=== PATIENT | male | born 1960 | race Caucasian/White ===

== ENCOUNTER 2018-02-01 10:54 | Emergency (ER) | payer SELFPAY ==
[2018-02-01 10:55] VITALS: BP 160/103; PULSE 93; RESP 14; TEMP 36.6; O2SAT 96; BMI 33.5
--- NOTE | 2018-02-01 11:24 | PC.NURSE ---
Pt denies chest pain, shortness of breath, or dizziness. FAST exam is negative. Pupils equal and reactive. His left hand has dried, flaking skin throughout. Right hand skin is intact.
[2018-02-01] MEDS: predniSONE 20 MG TABLET 40 MG PO (11:56)
[2018-02-01] MEDS: KETOROLAC 60 MG/2 ML VIAL IM (11:56)
[2018-02-01 12:32] VITALS: BP 149/90; PULSE 86; RESP 19; O2SAT 96
--- NOTE | 2018-02-01 18:52 | ED_ITS ---
HPI - Extremity Problem General Chief complaint: Extremity Problem,Nontraumatic Stated complaint: SEVERE SHOULDER PAIN,DOWN ARM Time Seen by Provider: 02/01/18 11:00 Source: patient Mode of arrival: ambulatory Limitations: no limitations History of Present Illness HPI Narrative: 57-year-old daily smoker presents with chief complaint of severe left-sided neck, shoulder and upper extremity pain for the past few days. He states the pain started when he had been sitting at his kitchen table hunched over, looking down at paperwork for 4-5 hours at a time. He states the pain starts in his neck and shoots down his arm and is made worse with any range of motion of his arm. He states it is burning in nature. He denies any weakness, numbness or tingling. He denies any blurred vision or trouble with speech. He denies any overuse or obvious injury. He denies chest pain or shortness of breath. Additionally, the patient complains of a new onset numbness to his right anterior thigh that started sometime today. He denies any pain nor other extremity complaint MD Complaint: extremity pain Onset (ago): day(s) Pain Consistency: constant Location: left Quality: burning and stabbing Radiation: distal Relieving factors: rest Exacerbating factors: range of motion Related Data Previous Rx's Medication Instructions Recorded hydrocodone-acetaminophen [[place]] 1 tab PO TIDP PRN #90 tab 08/03/16 sertraline 50 mg PO QDAY #30 tab 08/03/16 cyclobenzaprine 10 mg PO TID PRN #14 tab 02/01/18 hydrocodone-acetaminophen 1 tab PO Q4-6H PRN #14 tab 02/01/18 ketorolac 10 mg PO Q6H PRN #14 tab 02/01/18 methylprednisolone [Medrol ([place])] See Label Instructions PO PER PKG 02/01/18 DIR #21 each Allergies Allergy/AdvReac Type Severity Reaction Status Date / Time No Known Drug Allergies Allergy Verified 02/01/18 11:54 Review of Systems Review of Systems All systems reviewed & are unremarkable except as noted in HPI and below Constitutional Denies chills, Denies fever(s), Denies lethargy and Denies weakness Eyes Denies change in vision, Denies eye discharge, Denies irritation and Denies loss of vision ENT Ears, Nose, Mouth, and Throat: Denies change in voice, Denies neck pain and Denies sore throat Cardiovascular Denies chest pain, Denies irregular heart rhythm, Denies lightheadedness, Denies palpitations, Denies dyspnea, Denies dyspnea on exertion and Denies orthopnea Respiratory Denies cough, Denies dyspnea, Denies dyspnea on exertion and Denies wheezing Gastrointestinal Gastrointestinal: Denies abdominal pain, Denies change in bowel habits, Denies diarrhea, Denies nausea and Denies vomiting Genitourinary Denies hematuria, Denies flank pain, Denies urinary incontinence and Denies urinary urgency Musculoskeletal Reports limited range of motion, Denies neck pain and Reports radiating pain into limb Integumentary/Breasts Denies pruritus, Denies erythema, Denies rash and Denies wounds Neurologic Denies confusion, Denies loss of vision and Denies weakness Psychiatric Denies anxiety, Denies confusion, Denies depression, Denies homicidal ideation and Denies suicidal ideation Endocrine Denies palpitations Hematologic/Lymphatic Denies easy bruising Allergic/Immunologic Denies wheezing [facility] Social History Smoking Status: Current every day smoker Exam Narrative Exam Narrative: GENERAL: This is a well-nourished, well-developed patient, in mild distress. Splinting his left upper extremity across his chest as HEAD: Atraumatic. Normocephalic. No temporal or scalp tenderness. EYES: Pupils equal round and reactive. Extraocular motions intact. No scleral icterus. No injection or drainage. ENT: Nose without bleeding, purulent drainage or septal hematoma. Throat without erythema, tonsillar hypertrophy or exudate. Uvula midline. Airway patent. NECK: Trachea midline. No JVD or lymphadenopathy. There is some tenderness to palpation of the paraspinal muscles of the left side of his neck. Axial loading may actually improve the burning sensation in his left arm CARDIOVASCULAR: Regular rate and rhythm without murmurs, gallops, or rubs. RESPIRATORY: Clear to auscultation. Breath sounds equal bilaterally. No wheezes , rales, or rhonchi. GASTROINTESTINAL: Abdomen soft, non-tender, nondistended. No hepato-splenomegaly , or palpable masses. No guarding. EXTREMITIES: No clubbing, cyanosis, or edema. Left upper extremity with increasing pain of range of motion at the shoulder. There is no obvious deformity, discoloration, swelling. Cap refill less than 2 sec BACK: Nontender without deformity or crepitance. No flank tenderness. NEURO: AOx3. 5/5 strength bilateral upper and lower extremities with intact reflexes SKIN: No rash or erythema. Initial Vital Signs Initial Vital Signs: Vital Signs Temperature 97.9 F 02/01/18 10:55 Pulse Rate 93 H 02/01/18 10:55 Respiratory Rate 14 02/01/18 10:55 Blood Pressure 160/103 H 02/01/18 10:55 Pulse Oximetry 96 02/01/18 10:55 Procedures Orthopedic Splinting/Casting Injury #1: Side: left Upper Extremity Injury Location: shoulder Upper Extremity Immobilizer: sling/shoulder immobilizer Course Orders Ordered: Discontinued Medications Ketorolac Tromethamine (Toradol) 60 mg IM NOW ONE Stop: 02/01/18 11:36 Last Admin: 02/01/18 11:56 Dose: 60 mg Prednisone (Deltasone) 40 mg PO NOW ONE Stop: 02/01/18 11:36 Last Admin: 02/01/18 11:56 Dose: 40 mg Vital Signs - 8 hr 02/01/18 10:55 02/01/18 12:32 Temperature 97.9 F Pulse Rate 93 H 86 Respiratory Rate 14 19 Blood Pressure 160/103 H 149/90 H Pulse Oximetry 96 96 MDM - Extremity (Nontraumatic) MDM Narrative Medical decision making narrative: Patient has symptoms largely isolated to his left upper extremity and left side of his neck. He has a mechanism and story that would contribute to this type of discomfort. He has no weakness. We discussed the possibility of a more involved workup including head CT and lab work and he refuses at this point time wishing to try anti-inflammatories and a sling 1st. He understands that he may return immediately for any worsening or persistent symptoms. Discharge Plan Departure Patient Disposition: Home Clinical Impression: Cervical radiculopathy Discharge Date/Time: 02/01/18 12:33 Interventions: ED Discharge Assessment Last Done: 02/01/18 12:32 Instructions: DI for Cervical Radiculopathy Activity Restrictions/Additional Instructions: *You have been diagnosed with [ acute cervical radiculopathy ] *What to do: *Take medications as directed *Follow up with your primary care provider in 2-3 days, call for an appointment. Let them know you were seen in the Emergency Department and that we ask that you be seen in follow up *Return to ER if you should have any new, worsening or concerning symptoms , such as [worsening pain, weakness, or other bothersome symptoms ] Prescriptions: New cyclobenzaprine 10 mg tablet 10 mg PO TID PRN (Reason: muscle spasm) Qty: 14 RF: 0 hydrocodone-acetaminophen 5-325 mg tablet 1 tab PO Q4-6H PRN (Reason: pain) Qty: 14 RF: 0 ketorolac 10 mg tablet 10 mg PO Q6H PRN (Reason: pain) Qty: 14 RF: 0 methylprednisolone [Medrol ([place])] 4 mg tablets,dose pack See Label Instructions PO PER PKG DIR Qty: 21 RF: 0 No Action hydrocodone-acetaminophen [[place]] 5 MG/325 MG tablet 1 tab PO TIDP PRNQty: 90 RF: 0 sertraline 50 MG tablet 50 mg PO QDAY Qty: 30 RF: 2 Referrals: Onelia Blackmon MD [Physician] -
== END 2018-02-01 12:33 | disposition home or self-care (01) ==
PROVIDERS: Emergency Provider Emergency Medicine
DX: M54.12 Radiculopathy, cervical region (principal)
CPT/HCPCS: 96372; 99282; 99283; J1885

== ENCOUNTER → 2018-12-15 08:29 | Outpatient (CLI) | payer OTHER, SELFPAY ==
[2018-12-15 09:28] LABS: Add Manual Diff / Slide Review NO; Basophils Absolute Auto 0 /uL (0-100); Basophils Percent Auto 0.8 % (0-2); Eosinophils Absolute Auto 400 /uL (0-450); Eosinophils Percent Auto 6.1 % (2-4); Hematocrit 47.3 % (41-53); Hemoglobin 16.4 g/dL (13.5-17.5); Lymphocytes Absolute Auto 2200 /uL (1100-4500); Mean Corpuscular HGB Conc 34.8 % (30-36); Mean Corpuscular Volume 92.1 fL (80-100); Monocytes Absolute Auto 400 /uL (0-900); Neutrophils Absolute Auto 3100 /uL (1500-7000); Neutrophils Percent Auto 51.1 % (50-75); Platelet Count 164 X10^3/uL (150-400); Red Blood Cell Count 5.13 X10^6/uL (4.5-5.9); Red Cell Distribution Width 12.2 % (11.6-14.8)
[2018-12-15 10:05] LABS: Alanine Aminotransferase 29 IU/L (21-72); Albumin 4.2 g/dL (3.5-5.0); Albumin Globulin Ratio 1.4 (1.0-2.8); Alkaline Phosphatase 89 U/L (38-126); Aspartate Aminotransferase 25 IU/L (17-59); BUN Creatinine Ratio 26.3 (6-22); Bilirubin Total 0.7 mg/dL (0.2-1.3); Blood Urea Nitrogen 21 mg/dL (9-20); Calcium 9.1 mg/dL (8.4-10.2); Carbon Dioxide 26 mmol/L (22-32); Chloride 102 mmol/L (98-107); Estimated Glomerular Filt Rate > 60.0 mL/min (>60); Glucose 296 mg/dL (70-100); HDL Cholesterol 48 mg/dL (40-60); Sodium 137 mmol/L (137-145); Total Protein 7.2 g/dL (6.3-8.2)
[2018-12-15 10:14] LABS: Cholesterol 325 mg/dL (140-199); HEMOLYSIS 26 (0-50); Triglycerides 690 mg/dL (35-150)
[2018-12-15 10:25] LABS: Thyroid Stimulating Hormone 1.18 uIU/mL (0.47-4.68)
[2018-12-15 10:31] LABS: Prostate Specific Antigen Scrn 0.659 ng/mL (0.1-4.0)
== END ==
PROVIDERS: Visit Provider Hospitalist
DX: R53.83 Other fatigue (principal)
CPT/HCPCS: 36415; 80053; 80061; 84443; 85025; G0103

== ENCOUNTER → 2018-12-31 08:30 | Outpatient (CLI) | payer OTHER, SELFPAY ==
[2018-12-31 09:20] LABS: Hemoglobin A1C% w Est Avg Glu 10.2 % (4.0-6.0)
[2018-12-31 09:55] LABS: Cholesterol 267 mg/dL (140-199); Glucose 218 mg/dL (70-100); HDL Cholesterol 59 mg/dL (40-60); LDL Cholesterol Calculated 148 mg/dL (<100); Triglycerides 301 mg/dL (35-150)
== END ==
PROVIDERS: Visit Provider Nurse Practitioner
DX: E78.5 Hyperlipidemia, unspecified (principal); R73.9 Hyperglycemia, unspecified
CPT/HCPCS: 36415; 80061; 82947; 83036

== ENCOUNTER → 2019-02-02 08:43 | Outpatient (CLI) | payer OTHER, SELFPAY ==
[2019-02-02 09:46] LABS: Hemoglobin A1C% w Est Avg Glu 8.6 % (4.0-6.0)
[2019-02-02 09:52] LABS: Cholesterol 229 mg/dL (140-199); Glucose 196 mg/dL (70-100); HDL Cholesterol 52 mg/dL (40-60); LDL Cholesterol Calculated 130 mg/dL (<100); Triglycerides 237 mg/dL (35-150)
== END ==
PROVIDERS: PCP Nurse Practitioner; Visit Provider Nurse Practitioner
DX: E11.9 Type 2 diabetes mellitus without complications (principal); E78.1 Pure hyperglyceridemia; E78.5 Hyperlipidemia, unspecified
CPT/HCPCS: 36415; 80061; 82947; 83036

== ENCOUNTER → 2020-02-17 06:44 | Outpatient (CLI) | payer OTHER, SELFPAY ==
[2020-02-17 07:54] LABS: Creatinine Urine Random 113.8 mg/dL
[2020-02-17 07:57] LABS: Hemoglobin A1C% w Est Avg Glu 8.7 % (4.0-6.0)
[2020-02-17 07:58] LABS: Microalbumi Creatinin Ratio Ur 16.6 ug/mg CR (<30); Microalbumin Urine Random 1.9 mg/dL (0-1.6)
[2020-02-17 08:04] LABS: Alanine Aminotransferase 33 IU/L (<50); Albumin 4.3 g/dL (3.5-5.0); Albumin Globulin Ratio 1.5 (1.0-2.8); Alkaline Phosphatase 75 U/L (38-126); Aspartate Aminotransferase 27 IU/L (17-59); BUN Creatinine Ratio 22.1 (6-22); Bilirubin Total 0.5 mg/dL (0.2-1.3); Blood Urea Nitrogen 19 mg/dL (9-20); Calcium 9.4 mg/dL (8.4-10.2); Carbon Dioxide 30 mmol/L (22-32); Chloride 102 mmol/L (98-107); Cholesterol 269 mg/dL (140-199); Estimated Glomerular Filt Rate > 60.0 mL/min (>60); Globulin 2.8 g/dL (1.7-4.1); Glucose 207 mg/dL (70-100); HDL Cholesterol 64 mg/dL (40-60); HEMOLYSIS < 15 (0-50); LDL Cholesterol Calculated 129 mg/dL (<100); Sodium 137 mmol/L (137-145); Total Protein 7.1 g/dL (6.3-8.2); Triglycerides 382 mg/dL (35-150)
[2020-02-17 08:28] LABS: TSH w/ Reflex to FT4 1.62 uIU/mL (0.47-4.68)
== END ==
PROVIDERS: Nurse Practitioner; PCP Family Medicine; Referring Provider Family Medicine; Visit Provider Family Medicine
DX: Z13.29 Encounter for screening for other suspected endocrine disorder (principal); E11.69 Type 2 diabetes mellitus with other specified complication; E66.9 Obesity, unspecified; E78.1 Pure hyperglyceridemia; E78.5 Hyperlipidemia, unspecified; I10 Essential (primary) hypertension; Z79.899 Other long term (current) drug therapy
CPT/HCPCS: 36415; 80053; 80061; 82043; 82570; 83036; 84443

== ENCOUNTER → 2020-05-23 08:47 | Outpatient (CLI) | payer OTHER, SELFPAY ==
[2020-05-23 09:52] LABS: Add Manual Diff / Slide Review NO; Basophils Absolute Auto 0 /uL (0-100); Basophils Percent Auto 0.6 % (0-2); Eosinophils Absolute Auto 300 /uL (0-450); Eosinophils Percent Auto 5.1 % (2-4); Hematocrit 42.6 % (41-53); Hemoglobin 14.4 g/dL (13.5-17.5); Lymphocytes Absolute Auto 2000 /uL (1100-4500); Lymphocytes Percent Auto 39.8 % (25-40); Mean Corpuscular HGB Conc 33.8 % (30-36); Mean Corpuscular Hemoglobin 31.3 PG (26-34); Mean Corpuscular Volume 92.7 fL (80-100); Monocytes Absolute Auto 300 /uL (0-900); Monocytes Percent Auto 6.2 % (3-14); Neutrophils Absolute Auto 2400 /uL (1500-7000); Neutrophils Percent Auto 48.3 % (50-75); Platelet Count 159 X10^3/uL (150-400); Red Blood Cell Count 4.59 X10^6/uL (4.5-5.9); Red Cell Distribution Width 12.6 % (11.6-14.8); White Blood Cell Count 5.1 X10^3/uL (4.5-11.0)
[2020-05-23 10:01] LABS: Hemoglobin A1C% w Est Avg Glu 7.7 % (4.0-6.0)
[2020-05-23 10:26] LABS: Alanine Aminotransferase 58 IU/L (<50); Albumin 4.1 g/dL (3.5-5.0); Albumin Globulin Ratio 1.5 (1.0-2.8); Alkaline Phosphatase 66 U/L (38-126); Aspartate Aminotransferase 42 IU/L (17-59); BUN Creatinine Ratio 17.9 (6-22); Bilirubin Total 0.7 mg/dL (0.2-1.3); Blood Urea Nitrogen 15 mg/dL (9-20); Calcium 9.5 mg/dL (8.4-10.2); Carbon Dioxide 26 mmol/L (22-32); Chloride 101 mmol/L (98-107); Cholesterol 244 mg/dL (140-199); Estimated Glomerular Filt Rate > 60.0 mL/min (>60); Globulin 2.7 g/dL (1.7-4.1); Glucose 150 mg/dL (70-100); HDL Cholesterol 71 mg/dL (40-60); HEMOLYSIS < 15 (0-50); LDL Cholesterol Calculated 118 mg/dL (<100); Potassium 4.6 mmol/L (3.4-5.1); Sodium 134 mmol/L (137-145); Total Protein 6.8 g/dL (6.3-8.2); Triglycerides 275 mg/dL (35-150)
[2020-05-23 10:45] LABS: TSH w/ Reflex to FT4 1.14 uIU/mL (0.47-4.68)
[2020-05-23 10:49] LABS: Testosterone 371 ng/dL (71.8-623)
== END ==
PROVIDERS: PCP Family Medicine; Referring Provider Family Medicine; Visit Provider Family Medicine
DX: E11.69 Type 2 diabetes mellitus with other specified complication (principal); E11.9 Type 2 diabetes mellitus without complications; E78.1 Pure hyperglyceridemia; E78.5 Hyperlipidemia, unspecified; I10 Essential (primary) hypertension; R53.82 Chronic fatigue, unspecified; R68.82 Decreased libido
CPT/HCPCS: 36415; 80053; 80061; 83036; 84403; 84443; 85025

== ENCOUNTER 2020-10-29 12:04 | Emergency (ER) | payer OTHER, SELFPAY ==
[2020-10-29 12:25] VITALS: BP 187/97; PULSE 80; RESP 17; TEMP 36.9; O2SAT 99; BMI 33.7
--- NOTE | 2020-10-29 12:29 | DI.RAD.S_ITS ---
PROCEDURE: XR CHEST 2V INDICATIONS: cough TECHNIQUE: 2 views of the chest were acquired. COMPARISON: [facility], CHEST 2 VIEW, 07/19/2011, 10:11. [facility], CHEST 2 VIEW, 01/02/2016, 7:47. FINDINGS: Surgical changes and devices: None. Lungs and pleura: Lungs are clear. No pleural effusions or pneumothorax. Mediastinum: Mediastinal contours are normal. Heart size is normal. Bones and chest wall: No suspicious bony abnormalities. Age-appropriate bony degenerative changes are seen. Soft tissues appear unremarkable. IMPRESSION: Clear lungs, without infiltrates. Dictated by: Maximo Dewitt M.D. on 10/29/2020 at 12:01 Approved by: Maximo Dewitt M.D. on 10/29/2020 at 12:01
[2020-10-29 12:57] LABS: COVID19 -Nasal RAPID Negative (Negative)
[2020-10-29 15:37] VITALS: BP 174/89; PULSE 82; O2SAT 97
[2020-10-29] MEDS: COVID-19 VACC, Ad26(JANSSEN)/PF 0.5 ML IM (16:25)
--- NOTE | 2020-10-29 17:16 | ED_ITS ---
HPI - URI/Sore Throat <MARYAN Bustillo - Last Filed: 10/29/20 17:28> General Chief Complaint: Upper Respiratory Symptoms Stated Complaint: Sore Throat, Blood in Phlegm, Hot Time Seen by Provider: 10/29/20 15:58 Source: patient Mode of arrival: Ambulatory Limitations: no limitations History of Present Illness HPI Narrative: 60-year-old male presents to the ED for 2 days of sore throat and productive cough. He endorses a history of hypertension and sleep apnea. He was concerned about COVID and seeking a Maurizio & Maurizio vaccine. No shortness of breath, fever, chest pain or loss of smell or taste, no nausea or vomiting. He has no known sick contacts. This morning he woke up and had a large coughing fit and coughed up some sputum that was blood tinged. He had a persistent cough throughout the day with some thin white sputum, Related Data Home Medications Medication Instructions Recorded Confirmed multivitamin (Multiple Vitamins) 1 tab PO DAILY 12/11/18 05/06/20 Previous Rx's Medication Instructions Recorded blood sugar diagnostic (Blood #100 ea 03/16/20 Glucose Test) blood-glucose meter #1 ea 03/16/20 lancets 33 gauge (BD Ultra Fine #100 ea 03/16/20 Lancets) glipizide 2.5 mg tablet, extended 2.5 mg PO DAILY #90 tab 05/24/20 release 24 hr metformin 1,000 mg tablet 1,000 mg PO BID #180 tab 05/24/20 cyclobenzaprine 10 mg tablet 10 mg PO BEDTIME PRN #20 tab 05/27/20 hydrocodone 5 mg-acetaminophen 325 1 tab PO TID PRN #30 tab 05/27/20 mg tablet naproxen 500 mg tablet 500 mg PO BID #30 tab 05/27/20 lisinopril 10 mg tablet 10 mg PO DAILY #90 tab 06/20/20 pioglitazone 15 mg tablet (Actos) 15 mg PO DAILY #90 tab 06/20/20 Allergies Allergy/AdvReac Type Severity Reaction Status Date / Time No Known Drug Allergies Allergy Verified 05/06/20 09:15 Review of Systems <MARYAN Bustillo - Last Filed: 10/29/20 17:28> Review of Systems Narrative: General: denies fever, chills Head/Neck: denies headache, neck pain Eyes: denies visual changes, eye pain Cardio: denies chest pain, palpitations Respiratory: denies shortness of breath or difficulty breathing, occasional cough. 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 Shoulder pain (~2017) Sleep apnea (~2014) Substance abuse Trochanteric bursitis of right hip Surgical History History of tonsillectomy Family History Mother Thyroid disease Cancer Social History Smoking Status: Former smoker Tobacco: How many years used: 30 quit status: quit date established alcohol intake: current (1-2 beer per night ) substance use type: marijuana Smoking Status: Former smoker alcohol intake frequency: 3 or more drinks per day Substance Use Type: marijuana Exam <MARYAN Bustillo - Last Filed: 10/29/20 17:28> Narrative Exam Narrative: Independently reviewed vitals signs and nursing notes. General: Awake, alert, nontoxic, no cardiorespiratory distress Head/Neck: Atraumatic, neck full range of motion Eyes: EOMI, conjunctiva normal Nose: nares patent, no rhinorrhea Mouth/Throat: moist mucus membranes, posterior pharynx normal, no oral lesions, no exudate Cardio: Regular rate and rhythm, no peripheral edema Respiratory: Breath sounds clear, respirations unlabored without wheezing, stridor, or rales. No retractions. GI: Abdomen soft, nontender MSK: Moves all extremities, neurovascularly intact Skin: Normal capillary refill, no rash Neuro: Normal speech and cognition, normal gait Initial Vital Signs Initial Vital Signs: Vital Signs Temperature 98.4 F 10/29/20 12:25 Pulse Rate 80 10/29/20 12:25 Respiratory Rate 17 10/29/20 12:25 Blood Pressure 187/97 H 10/29/20 12:25 Pulse Oximetry 99 10/29/20 12:25 <Meli Go DO - Last Filed: 10/30/20 08:54> Initial Vital Signs Initial Vital Signs: Vital Signs Temperature 98.4 F 10/29/20 12:25 Pulse Rate 80 10/29/20 12:25 Respiratory Rate 17 10/29/20 12:25 Blood Pressure 187/97 H 10/29/20 12:25 Pulse Oximetry 99 10/29/20 12:25 Course <MARYAN Bustillo - Last Filed: 10/29/20 17:28> Orders Ordered: Discontinued Medications COVID-19 Vacc Ad26-S Recombinant (JSN) (PF) (Covid-19 Vacc, Ad26([place])/Pf 0.5 Ml) 0.5 ml IM .ONCE ONE Stop: 10/29/20 16:01 Last Admin: 10/29/20 16:25 Dose: 0.5 ml Documented by: LOVE Vital Signs Vital signs: Vital Signs - 8 hr 10/29/20 12:25 10/29/20 15:37 Temperature 98.4 F Pulse Rate 80 82 Respiratory Rate 17 Blood Pressure 187/97 H 174/89 H Pulse Oximetry 99 97 <Meli Go DO - Last Filed: 10/30/20 08:54> Orders Ordered: Discontinued Medications COVID-19 Vacc Ad26-S Recombinant (JSN) (PF) (Covid-19 Vacc, Ad26([place])/Pf 0.5 Ml) 0.5 ml IM .ONCE ONE Stop: 10/29/20 16:01 Last Admin: 10/29/20 16:25 Dose: 0.5 ml Documented by: LOVE Vital Signs Vital signs: Vital Signs - 8 hr 10/29/20 12:25 10/29/20 15:37 Temperature 98.4 F Pulse Rate 80 82 Respiratory Rate 17 Blood Pressure 187/97 H 174/89 H Pulse Oximetry 99 97 MDM - URI/Sore Throat <MARYAN Bustillo - Last Filed: 10/29/20 17:28> Lab Data Labs: Lab Results 10/29/20 Range/Units 12:30 SARS-CoV-2 (PCR) Negative (Negative) Imaging Data Chest x-ray: Radiologist's Impression: PROCEDURE:? XR CHEST 2V ? INDICATIONS:? cough ? TECHNIQUE:? 2 views of the chest were acquired.? ? COMPARISON:? [facility], CHEST 2 VIEW, 07/19/2011, 10:11.? [facility], CHEST 2 VIEW, 01/02/2016, 7:47. ? FINDINGS:? ? Surgical changes and devices:? None.? ? Lungs and pleura:? Lungs are clear.? No pleural effusions or pneumothorax.? ? Mediastinum:? Mediastinal contours are normal.? Heart size is normal.? ? Bones and chest wall:? No suspicious bony abnormalities.? Age-appropriate bony degenerative changes are seen. ? Soft tissues appear unremarkable.? IMPRESSION:? Clear lungs, without infiltrates. ? ? Dictated by: Maximo Dewitt M.D. on 10/29/2020 at 12:01 ? ? Approved by: Maximo Dewitt M.D. on 10/29/2020 at 12:01 ? MDM Narrative Medical decision making narrative: 60-year-old male presents to the ED for 2 days of sore throat and productive cough. COVID test with negative, chest x-ray was negative for abnormalities. Patient is nontoxic appearing. No evidence of hypoxia, cardiomegaly, pneumonia or respiratory distress. The patient requested and received his Maurizio & Maurizio COVID vaccination. Patient is appropriate and amenable to discharge home. Vital signs are stable on repeat examination is unremarkable. Patient has been informed of results. Patient has been given strict return to ER precautions for any new or worsening symptoms. Patient understands to follow up closely with outpatient providers as instructed. Patient understands plan and agrees to discharge home. All questions and concerns answered at this time. <Meli Go, - Last Filed: 10/30/20 08:54> Lab Data Labs: Lab Results 10/29/20 Range/Units 12:30 SARS-CoV-2 (PCR) Negative (Negative) Discharge Plan Departure Patient Disposition: Home Clinical Impression: Cough, COVID-19 vaccine administered Instructions: About the COVID-19 Vaccine Activity Restrictions/Additional Instructions: *You have been diagnosed with a cough with possible upper respiratory infection/bronchitis, most likely viral in nature. Your COVID test was negative. Your chest x-ray was normal as well. You have received the Maurizio & Maurizio COVID vaccine. *What to do: *Please continue to take your regular medications as directed. [ ] New medication prescriptions sent to your pharmacy: [ ] [ ] New medication written as a paper prescription [x] No new medications given *Please follow up with your primary care provider in 2-3 days, call for an appointment. Let them know you were seen in the Emergency Department and that we ask that you be seen in follow up. We will electronically transmit a record of today's note if your PCP is in our system *If you do not have a primary care provider please contact the [facility] Resource line at [phone]. They will ask some questions about your medical history and help get you set up with a doctor in the community. *Return to Emergency Department if you should have any new, worsening or concerning symptoms, such as [fever greater than 101F, chills, worsening pain, persistent vomiting or other bothersome symptoms] Prescriptions: No Action glipizide 2.5 mg tablet extended release 24hr 2.5 mg PO DAILY Qty: 90 RF: 0 metformin 1,000 mg tablet 1,000 mg PO BID Qty: 180 RF: 0 lisinopril 10 mg tablet 10 mg PO DAILY Qty: 90 RF: 2 pioglitazone [Actos] 15 mg tablet 15 mg PO DAILY Qty: 90 RF: 2 multivitamin [Multiple Vitamins] Tablet 1 tab PO DAILY RF: 0 (DME) lancets [BD Ultra Fine Lancets] 33 gauge misc See Rx Instructions .ROUTE .MEDSUPPLY Qty: 100 RF: 3 (DME) blood-glucose meter Kit See Rx Instructions .ROUTE .MEDSUPPLY Qty: 1 RF: 0 (DME) Blood Glucose Test Strip See Rx Instructions .ROUTE .MEDSUPPLY Qty: 100 RF: 3 naproxen 500 mg tablet 500 mg PO BID Qty: 30 RF: 0 cyclobenzaprine 10 mg tablet 10 mg PO BEDTIME PRN (Reason: muscle spasm) Qty: 20 RF: 0 hydrocodone-acetaminophen 5-325 mg tablet 1 tab PO TID PRN (Reason: pain) Qty: 30 RF: 0 Referrals: Jamarcus Katz, DO [Primary Care Provider] - <Meli Go DO - Last Filed: 10/30/20 08:54> Cosign ED Attending Cosignature Attestation: I was immediately available in the department for consultation. Documentation has been reviewed. I agree with assessment and plan.
== END 2020-10-29 16:38 | disposition home or self-care (01) ==
PROVIDERS: Emergency Medicine; Emergency Provider Nurse Practitioner Critical Care Medicine; PCP Family Medicine
DX: R05 Cough (principal); Z20.822 Contact with and (suspected) exposure to COVID-19; Z23 Encounter for immunization
CPT/HCPCS: 0031A; 71046; 87635; 91303; 99283; C9803

== ENCOUNTER → 2021-03-01 09:57 | Outpatient (CLI) | payer OTHER, SELFPAY ==
[2021-03-01 12:22] LABS: COVID19 -Nasal RAPID POSITIVE (Negative)
== END ==
PROVIDERS: PCP Family Medicine; Visit Provider Nurse Practitioner Family
DX: Z01.812 Encounter for preprocedural laboratory examination (principal); U07.1 COVID-19; Z20.822 Contact with and (suspected) exposure to COVID-19
CPT/HCPCS: 87635; C9803

== ENCOUNTER → 2021-03-07 06:56 | Outpatient (CLI) | payer OTHER, MEDICAID, SELFPAY ==
[2021-03-07 08:08] LABS: Hemoglobin A1C% w Est Avg Glu 9.6 % (4.0-6.0)
[2021-03-07 08:12] LABS: Alanine Aminotransferase 33 IU/L (<50); Albumin 3.8 g/dL (3.5-5.0); Albumin Globulin Ratio 1.2 (1.0-2.8); Alkaline Phosphatase 79 U/L (38-126); Aspartate Aminotransferase 28 IU/L (17-59); BUN Creatinine Ratio 15.7 (6-22); Blood Urea Nitrogen 13 mg/dL (9-20); Calcium 9.5 mg/dL (8.4-10.2); Carbon Dioxide 29 mmol/L (22-32); Chloride 104 mmol/L (98-107); Cholesterol 197 mg/dL (140-199); Estimated Glomerular Filt Rate > 60.0 mL/min (>60); Globulin 3.2 g/dL (1.7-4.1); Glucose 177 mg/dL (80-110); HDL Cholesterol 65 mg/dL (40-60); HEMOLYSIS < 15 (0-50); LDL Cholesterol Calculated 110 mg/dL (<100); Potassium 4.4 mmol/L (3.4-5.1); Sodium 139 mmol/L (137-145); Triglycerides 109 mg/dL (35-150)
[2021-03-07 08:41] LABS: Add Manual Diff / Slide Review NO; Basophils Absolute Auto 100 /uL (0-100); Basophils Percent Auto 2.1 % (0-2); Eosinophils Absolute Auto 200 /uL (0-450); Eosinophils Percent Auto 3.1 % (2-4); Hematocrit 41.5 % (41-53); Hemoglobin 14.3 g/dL (13.5-17.5); Lymphocytes Absolute Auto 1700 /uL (1100-4500); Lymphocytes Percent Auto 28.1 % (25-40); Mean Corpuscular HGB Conc 34.5 % (30-36); Mean Corpuscular Hemoglobin 32.1 PG (26-34); Mean Corpuscular Volume 93.1 fL (80-100); Monocytes Absolute Auto 600 /uL (0-900); Monocytes Percent Auto 9.7 % (3-14); Neutrophils Absolute Auto 3400 /uL (1500-7000); Platelet Count 180 X10^3/uL (150-400); Red Blood Cell Count 4.45 X10^6/uL (4.5-5.9); Red Cell Distribution Width 12.4 % (11.6-14.8)
== END ==
PROVIDERS: PCP Family Medicine; Referring Provider Family Medicine; Visit Provider Family Medicine
DX: E11.9 Type 2 diabetes mellitus without complications (principal); I10 Essential (primary) hypertension
CPT/HCPCS: 36415; 80053; 80061; 83036; 85025

== ENCOUNTER → 2021-05-29 07:30 | Outpatient (CLI) | payer OTHER, MEDICAID, SELFPAY ==
[2021-05-29 09:16] LABS: Alanine Aminotransferase 27 IU/L (<50); Albumin 4.1 g/dL (3.5-5.0); Albumin Globulin Ratio 1.5 (1.0-2.8); Alkaline Phosphatase 53 U/L (38-126); Aspartate Aminotransferase 26 IU/L (17-59); BUN Creatinine Ratio 21.1 (6-22); Bilirubin Total 0.9 mg/dL (0.2-1.3); Blood Urea Nitrogen 20 mg/dL (9-20); Calcium 9.1 mg/dL (8.4-10.2); Carbon Dioxide 28 mmol/L (22-32); Chloride 103 mmol/L (98-107); Estimated Glomerular Filt Rate > 60.0 mL/min (>60); Globulin 2.8 g/dL (1.7-4.1); Glucose 120 mg/dL (80-110); HEMOLYSIS < 15 (0-50); Potassium 4.4 mmol/L (3.4-5.1); Sodium 137 mmol/L (137-145); Total Protein 6.9 g/dL (6.3-8.2)
[2021-05-29 09:17] LABS: Creatinine Urine Random 94.8 mg/dL
[2021-05-29 09:20] LABS: Hemoglobin A1C% w Est Avg Glu 7.3 % (4.0-6.0)
[2021-05-29 09:20] LABS: Microalbumi Creatinin Ratio Ur 9.4 ug/mg CR (<30); Microalbumin Urine Random 0.9 mg/dL (0-1.6)
[2021-05-29 10:32] LABS: COVID19 -Nasal RAPID Negative (Negative)
== END ==
PROVIDERS: Family Medicine Sleep Medicine; PCP Family Medicine; Referring Provider Family Medicine; Visit Provider Family Medicine
DX: Z20.822 Contact with and (suspected) exposure to COVID-19 (principal); E11.9 Type 2 diabetes mellitus without complications; I10 Essential (primary) hypertension
CPT/HCPCS: 36415; 80053; 82043; 82570; 83036; 87635; C9803

== ENCOUNTER → 2021-05-30 08:11 | Outpatient (CLI) | payer OTHER, MEDICAID, SELFPAY ==
--- NOTE | 2021-05-30 09:10 | P.PCN_ITS ---
Cardiac Stress Test Report Referral & Results Date Patient Seen: 05/30/21 Time Patient Seen: 09:00 Requesting provider: Jamarcus Katz Indication: Fatigue, exercise intolerance Rest ECG: NSR Procedure Note: Today, following both written and verbal informed consent, the patient was exercised according to a standard Hoang protocol. The patient exercised for a total of 9 minutes 12 seconds achieving a maximum heart rate of 144. Patient's maximum systolic blood pressure was 200. This was an estimated 10.1 METs. Patient complains of activity limiting right thigh pain. Normal hemodynamic response to exercise. No signs or symptoms of angina. Average exercise capacity (FA I 0% on active scale). Rare PVCs at peak exercise. No other r hythm changes or ST deviations. Normal hemodynamic recovery at rest. Impression: Low probability for ischemia. Decker treadmill score of 9 is correlated with 97% 5 year survival rate cardiac causes of mortality. Patient remained concerned about recent imaging findings of calcification on the abdominal aorta. I recommended follow-up ankle brachial index. Please note: Actual ECG tracings can be found in the PACS system.
== END ==
PROVIDERS: PCP Family Medicine; Referring Provider Family Medicine; Visit Provider Family Medicine
DX: I20.8 Other forms of angina pectoris (principal)
CPT/HCPCS: 93016; 93017; 93018

== ENCOUNTER → 2021-05-31 12:37 | Outpatient (CLI) | payer OTHER, MEDICAID, SELFPAY | PROVIDERS: PCP Family Medicine; Referring Provider Family Medicine; Visit Provider Family Medicine | DX: M43.06 Spondylolysis, lumbar region (principal); Z53.20 Procedure and treatment not carried out because of patient's decision for unspecified reasons ==

== ENCOUNTER → 2021-09-25 07:52 | Outpatient (CLI) | payer OTHER, SELFPAY ==
[2021-09-25 09:34] LABS: Alanine Aminotransferase 33 IU/L (<50); Albumin 4.3 g/dL (3.5-5.0); Albumin Globulin Ratio 1.5 (1.0-2.8); Alkaline Phosphatase 55 U/L (38-126); Aspartate Aminotransferase 31 IU/L (17-59); BUN Creatinine Ratio 21.1 (6-22); Bilirubin Total 0.7 mg/dL (0.2-1.3); Blood Urea Nitrogen 20 mg/dL (9-20); Calcium 8.7 mg/dL (8.4-10.2); Carbon Dioxide 27 mmol/L (22-32); Chloride 104 mmol/L (98-107); Estimated Glomerular Filt Rate > 60 mL/min (>60); Globulin 2.9 g/dL (1.7-4.1); Glucose 99 mg/dL (80-110); HEMOLYSIS < 15 (0-50); Hemoglobin A1C% w Est Avg Glu 6.6 % (4.0-6.0); Potassium 4.4 mmol/L (3.4-5.1); Sodium 137 mmol/L (137-145); Total Protein 7.2 g/dL (6.3-8.2)
[2021-09-25 10:37] LABS: TSH w/ Reflex to FT4 1.06 uIU/mL (0.47-4.68)
== END ==
PROVIDERS: Family Provider Family Medicine; PCP Family Medicine; Referring Provider Family Medicine; Visit Provider Family Medicine
DX: E11.69 Type 2 diabetes mellitus with other specified complication (principal); E78.5 Hyperlipidemia, unspecified; I10 Essential (primary) hypertension; M43.06 Spondylolysis, lumbar region
CPT/HCPCS: 36415; 80053; 83036; 84443

== ENCOUNTER → 2021-10-16 07:31 | Outpatient (CLI) | payer OTHER, SELFPAY ==
--- NOTE | 2021-10-16 07:32 | DI.US.S_ITS ---
PROCEDURE: US ARTERIAL DUPLEX LE BI INDICATIONS: DIABETES/HYPERLIPIDEMIA. HISTORY OF NICOTINE USE. TECHNIQUE: Color and pulse Doppler interrogation was performed of both lower extremity arterial systems, with image documentation. COMPARISON: None. FINDINGS: Right lower extremity: Common femoral artery: 137 cm/sec, with triphasic flow. Deep femoral artery: 133 cm/sec, with triphasic flow. Proximal superficial femoral artery: 121 cm/sec, with triphasic flow. Mid superficial femoral artery: 91 cm/sec, with triphasic flow. Distal superficial femoral artery: 85 cm/sec, with triphasic flow. Popliteal artery: 67 cm/sec, with triphasic flow. Posterior tibial artery: 61 cm/sec, with triphasic flow. Anterior tibial artery/dorsalis pedis: 21 cm/sec, with biphasic flow. Dixon-scale imaging description: Mild atheromatous plaque is present. No focal hemodynamically significant stenosis. Left lower extremity: Common femoral artery: 103 cm/sec, with triphasic flow. Deep femoral artery: 70 cm/sec, with triphasic flow. Proximal superficial femoral artery: 104 cm/sec, with triphasic flow. Mid superficial femoral artery: 87 cm/sec, with triphasic flow. Distal superficial femoral artery: 71 cm/sec, with triphasic flow. Popliteal artery: 64 cm/sec, with triphasic flow. Posterior tibial artery: 66 cm/sec, with triphasic flow. Anterior tibial artery/dorsalis pedis: 26 cm/sec, with biphasic flow. Dixon-scale imaging description: Mild atheromatous plaque is present throughout. No focal hemodynamically significant stenosis. IMPRESSION: No sonographic findings to suggest hemodynamically significant stenosis of the bilateral lower extremity arteries. Dictated by: Alat Mccoy M.D. on 10/16/2021 at 10:22 Approved by: Alta Mccoy M.D. on 10/16/2021 at 10:24
== END ==
PROVIDERS: Family Provider Family Medicine; PCP Family Medicine; Referring Provider Family Medicine; Visit Provider Family Medicine
DX: E11.69 Type 2 diabetes mellitus with other specified complication; E78.5 Hyperlipidemia, unspecified; F17.201 Nicotine dependence, unspecified, in remission; I10 Essential (primary) hypertension
CPT/HCPCS: 93925

== ENCOUNTER → 2022-04-05 10:06 | Outpatient (CLI) | payer OTHER, SELFPAY ==
[2022-04-05 10:30] LABS: Hemoglobin 14.2 g/dL (13.5-17.5); Mean Corpuscular HGB Conc 33.9 % (30-36); Mean Corpuscular Volume 91.5 fL (80-100); Platelet Count 166 X10^3/uL (150-400); Red Blood Cell Count 4.59 X10^6/uL (4.5-5.9); Red Cell Distribution Width 12.8 % (11.6-14.8); White Blood Cell Count 6.7 X10^3/uL (4.5-11.0)
[2022-04-05 10:38] LABS: Hemoglobin A1C% w Est Avg Glu 6.8 % (4.0-6.0)
[2022-04-05 10:46] LABS: BUN Creatinine Ratio 20.2 (6-22); Blood Urea Nitrogen 17 mg/dL (9-20); Calcium 9.4 mg/dL (8.4-10.2); Carbon Dioxide 30 mmol/L (22-32); Chloride 98 mmol/L (98-107); Estimated Glomerular Filt Rate > 60 mL/min (>60); Glucose 116 mg/dL (80-110); HEMOLYSIS < 15 (0-50); Potassium 5.2 mmol/L (3.4-5.1); Sodium 138 mmol/L (137-145)
[2022-04-05 11:15] LABS: TSH w/ Reflex to FT4 1.03 uIU/mL (0.47-4.68)
== END ==
PROVIDERS: Family Provider Family Medicine; PCP Family Medicine; Referring Provider Nurse Practitioner Family; Visit Provider Nurse Practitioner Family
DX: E11.9 Type 2 diabetes mellitus without complications (principal); R42 Dizziness and giddiness
CPT/HCPCS: 36415; 80048; 83036; 84443; 85027

== ENCOUNTER → 2022-04-06 10:40 | Outpatient (CLI) | payer OTHER, SELFPAY ==
[2022-04-06 11:33] LABS: HEMOLYSIS < 15 (0-50); Potassium 4.4 mmol/L (3.4-5.1)
== END ==
PROVIDERS: Family Provider Family Medicine; PCP Family Medicine; Referring Provider Nurse Practitioner Family; Visit Provider Nurse Practitioner Family
DX: E87.5 Hyperkalemia (principal)
CPT/HCPCS: 36415; 84132

== ENCOUNTER → 2022-12-28 06:57 | Outpatient (CLI) | payer OTHER, MEDICAID, SELFPAY ==
[2022-12-28 07:49] LABS: Add Manual Diff / Slide Review NO; Basophils Absolute Auto 0 /uL (0-100); Basophils Percent Auto 0.9 % (0-2); Eosinophils Absolute Auto 300 /uL (0-450); Eosinophils Percent Auto 5.5 % (2-4); Lymphocytes Absolute Auto 2000 /uL (1100-4500); Lymphocytes Percent Auto 38.6 % (25-40); Mean Corpuscular HGB Conc 34.2 % (30-36); Mean Corpuscular Hemoglobin 31.7 PG (26-34); Mean Corpuscular Volume 92.7 fL (80-100); Monocytes Absolute Auto 400 /uL (0-900); Monocytes Percent Auto 7.9 % (3-14); Neutrophils Absolute Auto 2400 /uL (1500-7000); Neutrophils Percent Auto 47.1 % (50-75); Platelet Count 168 X10^3/uL (150-400); Red Blood Cell Count 4.42 X10^6/uL (4.5-5.9); Red Cell Distribution Width 13.4 % (11.6-14.8); White Blood Cell Count 5.2 X10^3/uL (4.5-11.0)
[2022-12-28 07:55] LABS: Hemoglobin A1C% w Est Avg Glu 6.6 % (4.0-6.0)
[2022-12-28 08:08] LABS: Alanine Aminotransferase 30 IU/L (<50); Albumin 4.3 g/dL (3.5-5.0); Albumin Globulin Ratio 1.5 (1.0-2.8); Alkaline Phosphatase 55 U/L (38-126); Aspartate Aminotransferase 28 IU/L (17-59); BUN Creatinine Ratio 18.1 (6-22); Bilirubin Total 0.6 mg/dL (0.2-1.3); Blood Urea Nitrogen 15 mg/dL (9-20); Calcium 9.4 mg/dL (8.4-10.2); Carbon Dioxide 26 mmol/L (22-32); Chloride 101 mmol/L (98-107); Cholesterol 229 mg/dL (140-199); Estimated Glomerular Filt Rate > 60 mL/min (>60); Globulin 2.8 g/dL (1.7-4.1); Glucose 132 mg/dL (80-110); HDL Cholesterol 73 mg/dL (40-60); HEMOLYSIS < 15 (0-50); LDL Cholesterol Calculated 124 mg/dL (<100); Potassium 4.8 mmol/L (3.4-5.1); Sodium 134 mmol/L (137-145); Total Protein 7.1 g/dL (6.3-8.2); Triglycerides 161 mg/dL (35-150)
== END ==
PROVIDERS: Family Provider Family Medicine; PCP Family Medicine; Referring Provider Family Medicine; Visit Provider Family Medicine
DX: I10 Essential (primary) hypertension (principal); E11.9 Type 2 diabetes mellitus without complications; E11.69 Type 2 diabetes mellitus with other specified complication; E78.5 Hyperlipidemia, unspecified
CPT/HCPCS: 36415; 80053; 80061; 83036; 85025

== ENCOUNTER → 2023-02-21 11:52 | Outpatient (CLI) | payer OTHER, MEDICAID, SELFPAY ==
[2023-02-21 14:25] LABS: Influenza A - CEPHEID Flu A NEGATIVE (NEGATIVE); Influenza B - CEPHEID Flu B NEGATIVE (NEGATIVE); Respiratory Syncytial Virus Negative (Negative)
[2023-02-21 14:26] LABS: COVID-19 CEPHEID 4-PLEX PCR Negative (Negative)
== END ==
PROVIDERS: Family Provider Family Medicine; PCP Family Medicine; Visit Provider Physician Assistant
DX: R05.3 Chronic cough (principal)
CPT/HCPCS: 0241U

== ENCOUNTER → 2023-02-21 11:57 | Outpatient (CLI) | payer OTHER, MEDICAID, SELFPAY ==
[2023-02-21 12:59] LABS: Add Manual Diff / Slide Review NO; Basophils Absolute Auto 100 /uL (0-100); Eosinophils Absolute Auto 200 /uL (0-450); Eosinophils Percent Auto 2.9 % (2-4); Hematocrit 40.4 % (41-53); Lymphocytes Absolute Auto 1800 /uL (1100-4500); Lymphocytes Percent Auto 35.9 % (25-40); Mean Corpuscular HGB Conc 34.6 % (30-36); Mean Corpuscular Volume 92.6 fL (80-100); Monocytes Absolute Auto 400 /uL (0-900); Neutrophils Absolute Auto 2700 /uL (1500-7000); Neutrophils Percent Auto 53.2 % (50-75); Platelet Count 192 X10^3/uL (150-400); Red Blood Cell Count 4.36 X10^6/uL (4.5-5.9); Red Cell Distribution Width 12.9 % (11.6-14.8); White Blood Cell Count 5.1 X10^3/uL (4.5-11.0)
[2023-02-21 13:35] LABS: Alanine Aminotransferase 35 IU/L (<50); Albumin 4.3 g/dL (3.5-5.0); Albumin Globulin Ratio 1.2 (1.0-2.8); Alkaline Phosphatase 65 U/L (38-126); Aspartate Aminotransferase 27 IU/L (17-59); BUN Creatinine Ratio 20.9 (6-22); Bilirubin Total 0.6 mg/dL (0.2-1.3); Blood Urea Nitrogen 18 mg/dL (9-20); Calcium 9.7 mg/dL (8.4-10.2); Carbon Dioxide 30 mmol/L (22-32); Chloride 99 mmol/L (98-107); Estimated Glomerular Filt Rate > 60 mL/min (>60); Globulin 3.5 g/dL (1.7-4.1); Glucose 101 mg/dL (80-110); HEMOLYSIS < 15 (0-50); Potassium 4.6 mmol/L (3.4-5.1); Sodium 135 mmol/L (137-145); Total Protein 7.8 g/dL (6.3-8.2)
[2023-02-21 13:56] LABS: Prostate Specific Antigen Scrn 0.773 ng/mL (0.1-4.0); TSH w/ Reflex to FT4 1.08 uIU/mL (0.47-4.68)
== END ==
PROVIDERS: Family Provider Family Medicine; PCP Family Medicine; Referring Provider Physician Assistant; Visit Provider Physician Assistant
DX: Z12.5 Encounter for screening for malignant neoplasm of prostate (principal); I10 Essential (primary) hypertension; R05.3 Chronic cough
CPT/HCPCS: 0241U; 36415; 80053; 84443; 85025; G0103

== ENCOUNTER → 2023-07-01 11:40 | Outpatient (CLI) | payer OTHER, SELFPAY ==
--- NOTE | 2023-07-01 11:42 | DI.RAD.S_ITS ---
PROCEDURE: XR HIP W PEL IF DONE RT 2V INDICATIONS: eval R hip pain TECHNIQUE: AP pelvis with lateral view(s) of the bilateral hip(s). COMPARISON: [facility], , [id number] W PEL IF PERFORMED, 08/15/2015, 11:37. [facility], , HIP 2V RIGHT, 07/19/2011, 10:17. FINDINGS: Bones: No fractures or dislocations. Pelvic ring appears intact. No suspicious bony lesions. Mild nonuniform joint space narrowing with osteophytic lipping of the acetabuli. Subchondral cystic change present within the acetabuli. Soft tissues: The visualized bowel gas pattern is normal. No suspicious soft tissue calcifications. IMPRESSION: Moderate to severe bilateral hip osteoarthritis. Kellgren-Sp Grade 3. Dictated by: Dereje Eisenberg M.D. on 07/01/2023 at 14:17 Approved by: Dereje Eisenberg M.D. on 07/01/2023 at 14:17
== END ==
PROVIDERS: Family Provider Family Medicine; PCP Family Medicine; Referring Provider Family Medicine; Visit Provider Family Medicine
DX: M16.0 Bilateral primary osteoarthritis of hip (principal); M25.551 Pain in right hip
CPT/HCPCS: 73502

== ENCOUNTER → 2023-07-04 08:38 | Outpatient (CLI) | payer OTHER, SELFPAY ==
--- NOTE | 2023-07-04 08:40 | DI.RAD.S_ITS ---
PROCEDURE: XR LUMBAR SPINE 2-3V INDICATIONS: eval low back pain TECHNIQUE: 3 views of the lumbar spine were acquired. COMPARISON: [facility], SPINE LUMB 2 OR 3VW, 01/25/2016, 11:24. FINDINGS: Bones: 5 [id number] vertebrae are present. There is normal bony alignment. No vertebral body compression fractures. No suspicious bony lesions. Spine degenerative disc disease and facet arthropathy. Soft tissues: Overlying bowel gas pattern is normal. No suspicious soft tissue calcifications. IMPRESSION: Multilevel degenerative disc disease. Multilevel facet arthropathy. No fracture. No acute osseous lesion. If symptoms and/or clinical suspicion for pathology persists, evaluation with MRI should be considered for further assessment. Dictated by: María Rodriguez MD, PhD on 07/04/2023 at 9:18 Approved by: María Rodriguez MD, PhD on 07/04/2023 at 9:19
== END ==
LOC: RAD 08:40
PROVIDERS: Family Provider Family Medicine; PCP Family Medicine; Referring Provider Family Medicine; Visit Provider Family Medicine
DX: M51.36 Other intervertebral disc degeneration, lumbar region (principal); M47.816 Spondylosis without myelopathy or radiculopathy, lumbar region; M54.50 Low back pain, unspecified
CPT/HCPCS: 72100

== ENCOUNTER → 2024-07-04 12:44 | Outpatient (CLI) | payer SELFPAY ==
--- NOTE | 2024-07-04 12:46 | DI.RAD.S_ITS ---
PROCEDURE: XR TOE LT MIN 2V INDICATIONS: Left EHL injury TECHNIQUE: 3 views of the 1st toe(s) acquired. COMPARISON: None. FINDINGS: Bones: Generalized degenerative changes can be seen, with focal irregularity along the proximal aspect of the distal phalanx of the great toe. No definite fracture lines are seen. Soft tissues: Soft tissue swelling is seen distally. IMPRESSION: Soft tissue swelling is seen, without an acute bony abnormality seen by plain film. If there is point tenderness (or other clinical suspicion for a fracture not seen on these images) then a dedicated CT or a short-term followup plain film series could be considered for further evaluation, as clinically appropriate. Dictated by: Maximo Dewitt M.D. on 07/04/2024 at 12:22 Approved by: Maximo Dewitt M.D. on 07/04/2024 at 12:23
== END ==
PROVIDERS: Family Provider Family Medicine; Referring Provider Physician Assistant Surgical; Visit Provider Physician Assistant Surgical
DX: S99.922A Unspecified injury of left foot, initial encounter (principal); M79.89 Other specified soft tissue disorders
CPT/HCPCS: 73660

== ENCOUNTER → 2024-08-25 08:24 | Outpatient (CLI) | payer OTHER, SELFPAY ==
[2024-08-25 08:57] LABS: Hemoglobin A1C% w Est Avg Glu 6.0 % (4.0-6.0)
== END ==
PROVIDERS: Family Provider Family Medicine; Referring Provider Family Medicine; Visit Provider Family Medicine
DX: E11.65 Type 2 diabetes mellitus with hyperglycemia (principal)
CPT/HCPCS: 36415; 83036

== ENCOUNTER → 2024-12-11 07:15 | Outpatient (CLI) | payer OTHER, SELFPAY ==
[2024-12-11 08:23] LABS: Add Manual Diff / Slide Review NO; Hematocrit 41.0 % (41-53); Hemoglobin 14.2 g/dL (13.5-17.5); Lymphocytes Absolute Auto 1400 /uL (1100-4500); Mean Corpuscular HGB Conc 34.6 % (30-36); Mean Corpuscular Hemoglobin 31.1 PG (26-34); Mean Corpuscular Volume 89.9 fL (80-100); Platelet Count 177 X10^3/uL (150-400)
[2024-12-11 08:40] LABS: Hemoglobin A1C% w Est Avg Glu 6.3 % (4.0-6.0)
[2024-12-11 08:44] LABS: Alanine Aminotransferase 38 IU/L (<50); Albumin 4.2 g/dL (3.5-5.0); Albumin Globulin Ratio 1.6 (1.0-2.8); Alkaline Phosphatase 64 U/L (38-126); Blood Urea Nitrogen 13 mg/dL (9-20); Calcium 9.0 mg/dL (8.4-10.2); Carbon Dioxide 25 mmol/L (22-32); Chloride 102 mmol/L (98-107); Cholesterol 169 mg/dL (140-199); Estimated Glomerular Filt Rate > 60 mL/min (>60); Globulin 2.6 g/dL (1.7-4.1); Glucose 123 mg/dL (70-99); HDL Cholesterol 72 mg/dL (40-60); HEMOLYSIS < 15 (0-50); Potassium 4.6 mmol/L (3.4-5.1); Sodium 134 mmol/L (137-145); Total Protein 6.8 g/dL (6.3-8.2); Triglycerides 103 mg/dL (35-150)
[2024-12-11 08:58] LABS: Free T4, Direct Thyroxine 1.13 ng/dL (0.78-2.19)
[2024-12-11 09:12] LABS: Thyroid Stimulating Hormone 1.23 uIU/mL (0.47-4.68)
[2024-12-11 09:14] LABS: Prostate Specific Antigen 0.608 ng/mL (0.10-4.00)
== END ==
PROVIDERS: Family Provider Family Medicine; PCP Family Medicine; Referring Provider Family Medicine; Visit Provider Family Medicine
DX: E11.59 Type 2 diabetes mellitus with other circulatory complications (principal); E11.65 Type 2 diabetes mellitus with hyperglycemia; E11.69 Type 2 diabetes mellitus with other specified complication; I10 Essential (primary) hypertension; E78.5 Hyperlipidemia, unspecified; I15.2 Hypertension secondary to endocrine disorders; R53.83 Other fatigue
CPT/HCPCS: 36415; 80053; 80061; 82043; 82570; 83036; 84153; 84439; 84443; 85025

== ENCOUNTER 2025-01-21 03:48 | Emergency (ER) | payer OTHER, SELFPAY ==
[2025-01-21] VITALS (20 sets, daily range): BP systolic 110–145; BP diastolic 71–86; PULSE 104–123; RESP 12–36; TEMP 36.8–37.3; O2SAT 86–95; BMI 30.4
--- NOTE | 2025-01-21 03:50 | DI.RAD.S_ITS ---
PROCEDURE: XR CHEST 1V INDICATIONS: fever, cough TECHNIQUE: One view of the chest was acquired. COMPARISON: [facility], , CHEST 2 VIEW, 01/02/2016, 7:47. FINDINGS: Surgical changes and devices: None. Lungs and pleura: Hazy airspace opacities in the right upper and mid lung. No pleural effusions or pneumothorax. Mediastinum: Mediastinal contours appear normal. Heart size is normal. Bones and chest wall: No suspicious bony lesions. Overlying soft tissues appear unremarkable. IMPRESSION: Hazy airspace opacities in the right upper and midlung are concerning for possible developing pneumonia. Findings are concordant preliminary interpretation provided by [facility]. Dictated by: Ranjit Lerner M.D. on 01/21/2025 at 8:02 Approved by: Ranjit Lerner M.D. on 01/21/2025 at 8:02
[2025-01-21 04:02] LABS: Add Manual Diff / Slide Review NO; Hematocrit 47.0 % (41-53); Hemoglobin 15.8 g/dL (13.5-17.5); Lymphocytes Absolute Auto 1000 /uL (1100-4500); Mean Corpuscular HGB Conc 33.6 % (30-36); Mean Corpuscular Hemoglobin 30.5 PG (26-34); Mean Corpuscular Volume 90.6 fL (80-100); Platelet Count 229 X10^3/uL (150-400)
[2025-01-21] MEDS: ALBUTEROL/IPRATROPIUM 3 ML AMPUL INH ×2 (04:03→07:55)
[2025-01-21] MEDS: methylPREDNISolone succ 125 MG/2 ML VIAL IV (04:08)
--- NOTE | 2025-01-21 04:10 | EKG_ITS ---
[address] [address] Test Date: 2025-01-21 Pat Name: Hossein Hammonds Department: [facility] Room: Gender: Male Hotel Room Attendant: VANCE KHLOE : 1960 Requested By: Order Number: [id number] Reading MD: Shant Steven Measurements Intervals [place] Rate: 117 P: 65 MN: 188 QRS: 32 QRSD: 88 T: 72 QT: 310 QTc: 432 Interpretive Statements Sinus tachycardia Electronically Signed On 01-21-2025 17:27:00 PST by Shant Steven
[2025-01-21 04:12] LABS: Alanine Aminotransferase 49 IU/L (<50); Albumin 5.1 g/dL (3.5-5.0); Albumin Globulin Ratio 1.5 (1.0-2.8); Alkaline Phosphatase 73 U/L (38-126); Blood Urea Nitrogen 20 mg/dL (9-20); Calcium 9.5 mg/dL (8.4-10.2); Carbon Dioxide 21 mmol/L (22-32); Chloride 104 mmol/L (98-107); Estimated Glomerular Filt Rate 51 mL/min (>60); Globulin 3.3 g/dL (1.7-4.1); Glucose 188 mg/dL (70-99); HEMOLYSIS < 15 (0-50); Lipase 45 U/L (23-300); Magnesium 2.0 mg/dL (1.6-2.3); Potassium 4.0 mmol/L (3.4-5.1); Sodium 139 mmol/L (137-145); Total Protein 8.4 g/dL (6.3-8.2)
--- NOTE | 2025-01-21 04:15 | ED.GENADULT ---
HPI - General Adult General Chief complaint: Fever Stated complaint: Chills and weakness Time Seen by Provider: 01/21/25 03:49 Source: patient and EMS Mode of arrival: EMS History of Present Illness HPI narrative: 64-year-old male complains of chills this evening after laid down, sensation of feeling ?crackles? in his breathing in his lungs, had cough productive of mucus and scant tinge blood. Called EMS. Anxious during transport. Denies history of pneumonia, recent antibiotics, injury, trauma, blood clots to legs or lungs, leg pain or swelling symptoms. Denies use of blood thinner medications besides aspirin. Related Data Home Medications ?Medication ?Instructions ?Recorded ?Confirmed tirzepatide 2.5 mg/0.5 mL 2.5 mg SUBCUT QWEEK 11/20/24 11/20/24 subcutaneous pen injector (Michaelunkimro) Previous Rx's ?Medication ?Instructions ?Recorded lancets 30 gauge (BD Ultra-Fine II #200 ea 04/24/21 Lancets) blood sugar diagnostic (True #100 strips 10/18/21 Metrix Glucose Test Strip) losartan 50 mg tablet 50 mg PO DAILY #90 tabs 04/23/23 atorvastatin 10 mg tablet 10 mg PO BEDTIME #90 tabs 08/20/23 celecoxib 50 mg capsule (Celebrex) 50 mg PO BID #30 caps 11/20/24 peg 3350-electrolytes 236 240 ml PO Q10M #4,000 mL 12/09/24 gram-22.74 gram-6.74 gram-5.86 gram solution (Golytely) Allergies Allergy/AdvReac Type Severity Reaction Status Date / Time No Known Drug Allergies Allergy Verified 11/20/24 09:18 Patient History Medical History (Updated 01/21/25 @ 07:08 by Andreas Torres MD) Primary osteoarthritis of right hip Obstructive sleep apnea Lightheadedness Idiopathic neuropathy Spinal stenosis Claudication Bilateral foot pain Spondylolysis, lumbar region Angina of effort COVID-19 GERD (gastroesophageal reflux disease) Other snf (current) drug therapy Hypertension Class 1 obesity Sleep apnea (~2014) Substance abuse Shoulder pain (~2017) Trochanteric bursitis of right hip Back pain (~2011) Dermatitis Inguinal hernia Surgical History History of tonsillectomy Family History Mother Thyroid disease Cancer Social History Smoking Status: Former smoker Tobacco: How many years used: 30 quit status: quit date established alcohol intake: current substance use type: marijuana Smoking Status: Former smoker alcohol intake frequency: 3 or more drinks per day Exam Narrative Exam Narrative: GENERAL: Well-developed patient, in mild distress. HEAD: Atraumatic. Normocephalic. EYES: Pupils equal round and reactive. Extraocular motions intact. No scleral icterus. No injection or drainage. ENT: Nose without bleeding, purulent drainage. Throat without erythema, tonsillar hypertrophy or exudate. Airway patent. NECK: Trachea midline. Non tender CARDIOVASCULAR: Regular rate and rhythm without murmurs, gallops, or rubs. RESPIRATORY: Clear to auscultation. Breath sounds equal bilaterally. No wheezes, rales, or rhonchi. GASTROINTESTINAL: Abdomen soft, non-tender, nondistended. EXTREMITIES: No edema or joint tenderness. BACK: Nontender without deformity or crepitance. No flank tenderness. NEURO: AOx3. Motor functions grossly nonfocal. SKIN: No rash or erythema of visible areas Initial Vital Signs Initial Vital Signs: Vital Signs Temperature 98.3 F 01/21/25 03:56 Pulse Rate 123 H 01/21/25 03:56 Respiratory Rate 20 01/21/25 03:56 Blood Pressure 125/83 01/21/25 03:56 Pulse Oximetry 89 L 01/21/25 03:56 Oxygen Delivery Method Room Air 01/21/25 03:56 Course Orders Ordered: ED Orders 01/21/25 03:50 XR chest 1V Stat EKG-12 Lead Stat 01/21/25 03:55 Complete Blood Count AUTO DIFF Stat Comprehensive Metabolic Panel Stat Lipase Stat Magnesium Stat NT-proBNP (BNP-Adult 18+) Stat PTT Partial Thromboplastin Casey Q6H Prothrombin Time INR Routine Troponin I Stat 01/21/25 04:22 CT angio chest PE protocol Stat 01/21/25 04:27 Covid-19 + FLU A/B + RSV - PCR Stat 01/21/25 04:53 Complete Blood Count AUTO DIFF Routine 01/21/25 04:59 ABG [Arterial Blood Gas] DAILY 01/21/25 06:31 Troponin I Stat 01/21/25 06:45 Blood Culture Stat Lactate (Lactic Acid) Stat 01/21/25 11:00 PTT Partial Thromboplastin Casey Q6H 01/21/25 17:00 PTT Partial Thromboplastin Casey Q6H 01/21/25 23:00 PTT Partial Thromboplastin Casey Q6H 01/22/25 05:00 Hemoglobin and Hematocrit DAILY Platelet Count DAILY 01/23/25 05:00 Hemoglobin and Hematocrit DAILY Platelet Count DAILY Heparin Sodium/Dextrose (Heparin Drip) 25,000 unit in 500 mls @ 34.618 mls/hr IV CONT SEVEN; Protocol Last Admin: 01/21/25 05:03 Dose: 18 units/kg/hr, 34.618 mls/hr Documented By: AZALEA Co-signed By: JOSE GUADALUPE Discontinued Medications Albuterol/Ipratropium (Albuterol/Ipratropium 3 Ml Ampul) 3 ml INH NOW ONE Stop: 01/21/25 03:50 Last Admin: 01/21/25 04:03 Dose: 3 ml Documented By: Aspirin (Aspirin 81 Mg Chew Tab) 324 mg PO NOW ONE Stop: 01/21/25 05:47 Last Admin: 01/21/25 06:55 Dose: 324 mg Heparin Sodium (Porcine) (Heparin 5,000 Unit/Ml Vial) 7,500 unit 80 unit/kg (7500 unit) IV NOW ONE Stop: 01/21/25 04:54 Last Admin: 01/21/25 05:03 Dose: 7,500 unit Documented By: AZALEA Ceftriaxone Sodium 1,000 mg/ (Sodium Chloride) 100 mls @ 200 mls/hr IV NOW ONE Stop: 01/21/25 06:23 Last Admin: 01/21/25 06:55 Dose: 200 mls/hr Doxycycline Hyclate 100 mg/ (Sodium Chloride) 100 mls @ 100 mls/hr IV NOW ONE Stop: 01/21/25 06:23 Methylprednisolone (Methylprednisolone Succ 125 Mg/2 Ml Vial) 125 mg IV NOW ONE Stop: 01/21/25 04:05 Last Admin: 01/21/25 04:08 Dose: 125 mg Documented By: AZALEA Vital Signs Vital signs: Vital Signs - 8 hr 01/21/25 03:56 01/21/25 04:00 01/21/25 04:00 Temperature 98.3 F Pulse Rate 123 H 120 H Respiratory Rate 20 12 Blood Pressure 125/83 114/73 Pulse Oximetry 89 L 92 Oxygen Delivery Method Room Air Room Air Oxygen Flow Rate 01/21/25 04:09 01/21/25 04:19 01/21/25 04:30 Temperature Pulse Rate 117 H Respiratory Rate 18 Blood Pressure 110/76 Pulse Oximetry 94 86 L Oxygen Delivery Method Oxygen Flow Rate 01/21/25 04:30 01/21/25 04:37 01/21/25 04:51 Temperature Pulse Rate 116 H 118 H Respiratory Rate 12 18 Blood Pressure Pulse Oximetry 91 87 L 88 L Oxygen Delivery Method Nasal Cannula Nasal Cannula Nasal Cannula Oxygen Flow Rate 2 2 4 01/21/25 04:51 01/21/25 04:56 01/21/25 05:00 Temperature Pulse Rate 114 H Respiratory Rate 23 Blood Pressure 133/84 Pulse Oximetry 88 L 89 L Oxygen Delivery Method Nasal Cannula Oximask Oxygen Flow Rate 4 6 01/21/25 05:00 01/21/25 05:12 01/21/25 05:30 Temperature Pulse Rate Respiratory Rate Blood Pressure 129/82 117/78 Pulse Oximetry 86 L Oxygen Delivery Method Oximask Oxygen Flow Rate 6 01/21/25 05:30 01/21/25 06:00 01/21/25 06:00 Temperature Pulse Rate 112 H 109 H Respiratory Rate 22 20 Blood Pressure 112/71 Pulse Oximetry 89 L 91 Oxygen Delivery Method Oximask Oxygen Flow Rate 12 01/21/25 06:30 01/21/25 06:30 Temperature Pulse Rate 106 H Respiratory Rate 24 Blood Pressure 117/84 Pulse Oximetry 94 Oxygen Delivery Method Oximask Oxygen Flow Rate 12 Medical Decision Making Lab Data Lab results reviewed: Yes I reviewed the patient's lab results. Lab results narrative: White blood cell count 39420, hemoglobin 15.8, platelets adequate. Glucose 88. BUN 20 with creatinine 1.52, GFR 51. AST 84 mild elevation, other liver functions normal. Lipase normal. 01/21/25 03:55 01/21/25 03:55 Labs: Lab Results 01/21/25 01/21/25 01/21/25 Range/Units 03:55 04:27 05:25 WBC 16.5 H (4.5-11.0) X10^3/uL RBC 5.19 (4.5-5.9) X10^6/uL Hgb 15.8 (13.5-17.5) g/dL Hct 47.0 (41-53) % MCV 90.6 (80-100) fL MCH 30.5 (26-34) PG MCHC 33.6 (30-36) % RDW 13.4 (11.6-14.8) % Plt Count 229 (150-400) X10^3/uL Neut % (Auto) 88.3 H (50-75) % Lymph % (Auto) 5.8 L (25-40) % [place] % (Auto) 4.6 (3-14) % Eos % (Auto) 0.0 L (2-4) % Baso % (Auto) 1.3 (0-2) % Neut # (Auto) 33307 H (4744-3279) /uL Lymph # (Auto) 1000 L (1660-8868) /uL [place] # (Auto) 800 (0-900) /uL Eos # (Auto) 0 (0-450) /uL Baso # (Auto) 200 H (0-100) /uL PT 11.1 (9.4-12.5) SECONDS INR 1.0 (0.9-1.3) APTT 29 (25.1-36.5) SECONDS ABG pH 7.41 (7.35-7.45) ABG pCO2 31.4 L (35-45) mmHg ABG pO2 64 L (80-100) mmHg ABG HCO3 20 L (23-27) mmol/L ABG Total CO2 19 L (23-27) mmol/L ABG O2 Saturation 93 L (95-100) % ABG Base Excess -3.5 L (-2-3) mmol/L Sodium 139 (137-145) mmol/L Potassium 4.0 (3.4-5.1) mmol/L Chloride 104 (98-107) mmol/L Carbon Dioxide 21 L (22-32) mmol/L BUN 20 (9-20) mg/dL Creatinine 1.52 H (0.66-1.25) mg/dL Estimated GFR 51 L (>60) mL/min BUN/Creatinine Ratio 13.2 (6-22) Glucose 188 H (70-99) mg/dL Lactate (0.7-2.1) mmol/L Calcium 9.5 (8.4-10.2) mg/dL Magnesium 2.0 (1.6-2.3) mg/dL Total Bilirubin 1.1 (0.2-1.3) mg/dL AST 84 H (17-59) IU/L ALT 49 (<50) IU/L Alkaline Phosphatase 73 (38-126) U/L Troponin I 4.610 H* (0.01-0.034) ng/mL NT-Pro-B Natriuret Pep 645 H (<125) pg/mL Total Protein 8.4 H (6.3-8.2) g/dL Albumin 5.1 H (3.5-5.0) g/dL Globulin 3.3 (1.7-4.1) g/dL Albumin/Globulin Ratio 1.5 (1.0-2.8) Lipase 45 (23-300) U/L SARS-CoV-2 (PCR) Negative (Negative) Influenza A (RT-PCR) Flu a negative (NEGATIVE) Influenza B (RT-PCR) Flu b negative (NEGATIVE) RSV (PCR) Negative (Negative) 01/21/25 01/21/25 Range/Units 06:31 06:45 WBC (4.5-11.0) X10^3/uL RBC (4.5-5.9) X10^6/uL Hgb (13.5-17.5) g/dL Hct (41-53) % MCV (80-100) fL MCH (26-34) PG MCHC (30-36) % RDW (11.6-14.8) % Plt Count (150-400) X10^3/uL Neut % (Auto) (50-75) % Lymph % (Auto) (25-40) % [place] % (Auto) (3-14) % Eos % (Auto) (2-4) % Baso % (Auto) (0-2) % Neut # (Auto) (5402-7254) /uL Lymph # (Auto) (9715-1204) /uL [place] # (Auto) (0-900) /uL Eos # (Auto) (0-450) /uL Baso # (Auto) (0-100) /uL PT (9.4-12.5) SECONDS INR (0.9-1.3) APTT (25.1-36.5) SECONDS ABG pH (7.35-7.45) ABG pCO2 (35-45) mmHg ABG pO2 (80-100) mmHg ABG HCO3 (23-27) mmol/L ABG Total CO2 (23-27) mmol/L ABG O2 Saturation (95-100) % ABG Base Excess (-2-3) mmol/L Sodium (137-145) mmol/L Potassium (3.4-5.1) mmol/L Chloride (98-107) mmol/L Carbon Dioxide (22-32) mmol/L BUN (9-20) mg/dL Creatinine (0.66-1.25) mg/dL Estimated GFR (>60) mL/min BUN/Creatinine Ratio (6-22) Glucose (70-99) mg/dL Lactate 2.5 H (0.7-2.1) mmol/L Calcium (8.4-10.2) mg/dL Magnesium (1.6-2.3) mg/dL Total Bilirubin (0.2-1.3) mg/dL AST (17-59) IU/L ALT (<50) IU/L Alkaline Phosphatase (38-126) U/L Troponin I 4.840 H* (0.01-0.034) ng/mL NT-Pro-B Natriuret Pep (<125) pg/mL Total Protein (6.3-8.2) g/dL Albumin (3.5-5.0) g/dL Globulin (1.7-4.1) g/dL Albumin/Globulin Ratio (1.0-2.8) Lipase (23-300) U/L SARS-CoV-2 (PCR) (Negative) Influenza A (RT-PCR) (NEGATIVE) Influenza B (RT-PCR) (NEGATIVE) RSV (PCR) (Negative) ECG Data Attestation: I personally reviewed and interpreted this ECG as follows: Interpretation: 0410, sinus tachycardia with a rate of 117, no obvious ST segment elevation or depression changes. [place] 188, QRS 88, QTC 432. MDM Narrative Medical decision making narrative: 64-year-old male with rattling sensation in his chest and chills since yesterday, cough productive of sputum that was blood tinged times single a [place] small tonight. Arrival by EMS. Some wheezing on examination. EKG, chest x-ray, labs pending. We will add IV Solu-Medrol. Nebulized DuoNeb ordered. Mild oxygen requirement, started on nasal cannula oxygen supplementation. EKG sinus rhythm, no obvious ST segment elevation or depression changes. Chest x-ray. Impressions: ?Mild interstitial opacities in the right lung. ? See tele radiology report. Lab data: White blood cell count 10653, hemoglobin 15.8, platelets adequate. Glucose 88. BUN 20 with creatinine 1.52, GFR 51. AST 84 mild elevation, other liver functions normal. Lipase normal. Troponin 4.6 markedly elevated. Consider non-STEMI, consider PE. CTA chest results pending. Will initiate IV heparin bolus/infusion at higher dose VTE protocol for now. CT angiogram chest. Impressions: ?Evaluation of the subsegmental pulmonary arteries is limited due to motion artifact. No definite acute pulmonary embolus is identified. Scattered bilateral ground-glass opacities with interlobular septal thickening. Findings can be seen with pneumonia or pulmonary edema. Bilateral bronchial wall thickening with areas of mucous plugging. Small amount of mucus also seen in the right mainstem bronchus. ? See tele radiology report. Blood cultures, IV ceftriaxone, IV doxycycline. PO aspirin. No cardiac manager labor delivery available here, markedly elevated troponin, too high likely for type 2 injury, consider non STEMI. Transfer to cardiac manager labor delivery capable facility. 0630, case discussed with hospitalist Dr. Glover at [facility] who accepts patient for transfer. Consider spurious 1st troponin, repeat troponin ordered. Repeat troponin 4.8 further increased, not a false positive. Proceed with transfer with presumed diagnosis non STEMI for now. Having more coughing, we will repeat nebulized DuoNeb. 0815, bed assigned, ALS transport to [facility]. Critical Care Time Critical Care Time Critical Care Time: Yes Total Critical Care Time: 35 Attestation: The high probability of a clinically significant, sudden or life threatening deterioration of the [cardiopulmonary] system(s) required my full and direct attention, intervention and personal management. The aggregate critical care time was [35] minutes. This time is in addition to time spent performing reported procedures but includes the following: [x] Data Review and interpretation [x] Patient assessment and monitoring of vital signs [x] Documentation [x] Medication orders and management Discharge Plan Departure Patient Disposition: [facility] Clinical Impression: Non-ST elevated myocardial infarction (non-STEMI), Hemoptysis, Hypoxia, Pneumonia Prescriptions: No Action (DME) lancets [BD Ultra-Fine II Lancets] 30 gauge misc See Rx Instructions .Route Qty: 200 6RF Rx Instructions: use to test blood glucose BID (DME) True Metrix Glucose Test Strip Strip See Rx Instructions .ROUTE .COMPLEX Qty: 100 0RF Dose Instruction: USE TO TEST BLOOD GLUCOSE TWICE DAILY Rx Instructions: USE TO TEST BLOOD GLUCOSE TWICE DAILY losartan 50 mg tablet 50 mg PO DAILY Qty: 90 1RF atorvastatin 10 mg tablet 10 mg PO BEDTIME Qty: 90 3RF peg 3350-electrolytes [Golytely] 236-22.74-6.74 -5.86 gram recon soln 240 ml PO Q10M Qty: 4000 0RF Rx Instructions: Take as directed by provider. Mounjaro 2.5 mg/0.5 mL pen injector 2.5 mg SUBCUT QWEEK Rx Instructions: for 4 weeks celecoxib [Celebrex] 50 mg capsule 50 mg PO BID Qty: 30 0RF Referrals: Stanley Larsen MD [Primary Care Provider, Family Practice]
--- NOTE | 2025-01-21 04:22 | DI.CT.S_ITS ---
PROCEDURE: CT ANGIO CHEST PE PROTOCOL INDICATIONS: Cough with blood-tinged sputum TECHNIQUE: After the administration of intravenous contrast, 2 mm thick sections acquired from the pulmonary apices to the posterior costophrenic angles. 3-dimensional maximum intensity projection (MIP) coronal and sagittal reformats were then acquired through the thorax. For radiation dose reduction, the following was used: automated exposure control, adjustment of mA and/or kV according to patient size. COMPARISON: None. FINDINGS: Image quality: Diagnostic. Pulmonary arteries: Pulmonary arteries are normal in size, and demonstrate no intraluminal filling defects to the level of the subsegmental pulmonary arteries.. Lower Neck: No enlarged lymph nodes. Thyroid: No thyroid nodules which require sonographic follow up, per consensus guidelines. Axillae: No enlarged lymph nodes. Chest Wall: Unremarkable. Bones: Unremarkable. Lungs and Pleura: No pneumothorax or pleural effusions. Bilateral upper lobe predominant centrilobular ground-glass opacities with smooth interlobular septal thickening, in in anterior to posterior gradient with additional ground-glass opacities and smooth interlobular septal thickening within the bilateral lower lobes. There is mild peribronchial wall thickening within the bilateral central bronchials. Heart: Heart size is mildly globally enlarged. Triple-vessel coronary artery calcifications. No pericardial effusion. Thoracic Vessels: No aortic aneurysm. Mediastinum and D[place]: No enlarged lymph nodes. Esophagus: No wall thickening. No hiatal hernia. Upper Abdomen: Visualized upper abdomen solid organs and bowel loops appear normal. IMPRESSION: 1. No pulmonary embolus. 2. Bilateral a upper lobe predominant ground-glass opacities with smooth interlobular septal thickening can be seen with multifocal pneumonia, and component of bronchitis, versus less likely possible pulmonary edema. 3. Mild cardiomegaly with triple-vessel coronary artery calcifications. Correlate with risk factors, symptoms, and consider cardiology referral versus lifestyle modifications. Findings are concordant preliminary interpretation provided by [facility]. Dictated by: Ranjit Lerner M.D. on 01/21/2025 at 8:02 Approved by: Ranjit Lerner M.D. on 01/21/2025 at 8:06
[2025-01-21 04:23] LABS: NT-proBNP (BNP-Adult 18+) 645 pg/mL (<125)
[2025-01-21 04:27] LABS: Troponin I 4.610 ng/mL (0.01-0.034)
--- NOTE | 2025-01-21 04:27 | PC.NURSE ---
Critical troponin 4.[address] Torres informed at this time.
--- NOTE | 2025-01-21 04:38 | PC.NURSE ---
Pt to imaging via Ed stretcher with director of diagnostic imaging
[2025-01-21] MEDS: HEPARIN 5,000 UNIT/ML VIAL 7500 UNIT IV (05:03)
[2025-01-21] MEDS: HEPARIN DRIP 25,000 UNIT/500 ML IV.SOLN 34.618 UNIT IV (05:03)
[2025-01-21 05:09] LABS: Influenza A - CEPHEID Flu A NEGATIVE (NEGATIVE); Influenza B - CEPHEID Flu B NEGATIVE (NEGATIVE)
[2025-01-21 05:12] LABS: COVID-19 CEPHEID 4-PLEX PCR Negative (Negative)
[2025-01-21 05:13] LABS: INR 1.0 (0.9-1.3); Prothrombin Time 11.1 SECONDS (9.4-12.5)
[2025-01-21 05:21] LABS: PTT Partial Thromboplastin Tim 29 SECONDS (25.1-36.5)
[2025-01-21 05:29] LABS: HCO3 ABG 20 mmol/L (23-27); Oxygen Saturation ABG 93 % (95-100); PCO2 ABG 31.4 mmHg (35-45); PO2 ABG 64 mmHg (80-100); TCO2 ABG 19 mmol/L (23-27)
[2025-01-21] MEDS: ASPIRIN 81 MG CHEW TAB 324 MG PO (06:55)
[2025-01-21 07:05] LABS: Troponin I 4.840 ng/mL (0.01-0.034)
[2025-01-21 07:11] LABS: Lactate (Lactic Acid) 2.5 mmol/L (0.7-2.1)
--- NOTE | 2025-01-21 07:19 | PC.NURSE ---
took over for care of patient. pt's heparin infusion rate going at 18 units/kg/hr. This RN asked doctor if we can switch patient to cardiac dose of 12 units/kg/hr. Per provider, pt needs cardiac dose, not PE dose. Pt switched to 12 units/kg/hr. Pt states increasing CP with deep breaths. Pt on 11L Oxymask to keep O2 up. Provider aware of this
[2025-01-21] MEDS: DOXYCYCLINE 100 MG in SODIUM CHLORIDE 0.9% 100 ML IV (07:42)
[2025-01-21 08:25] LABS: Reflexed Lactate in 2 Hours Y
--- NOTE | 2025-01-21 08:31 | PC.NURSE ---
per Dr. Catalan he is okay with patients BG being 242. Also reporting that he is comfortable with the patient being on 10L Oxymask. He just needs to go to the scientific laboratory supervisor and be transferred
--- NOTE | 2025-01-21 08:34 | PC.NURSE ---
pt reports starting to feel better after breathing tx
--- NOTE | 2025-01-21 08:41 | PC.NURSE ---
Pt trending down on O2 neccessity. pt now needing 8LO2 via Oxymask
--- NOTE | 2025-01-21 08:58 | PC.NURSE ---
report given to Coleman, RN at [facility]
--- NOTE | 2025-01-21 09:13 | RT ---
pt erwin neb tx well, no distress noted and pt on 12 lpm Oximask
[2025-01-21 09:23] LABS: Lactate 2HR (Lactic Acid Rflx) 2.3 mmol/L (0.7-2.1)
== END 2025-01-21 09:19 | disposition short-term general hospital (02) ==
PROVIDERS: Emergency Provider Emergency Medicine; Family Provider Family Medicine; PCP Family Medicine
DX: I21.4 Non-ST elevation (NSTEMI) myocardial infarction (principal); R04.2 Hemoptysis; R09.02 Hypoxemia; J18.9 Pneumonia, unspecified organism; Z87.891 Personal history of nicotine dependence
CPT/HCPCS: 36600; 71045; 71275; 80053; 82805; 82962; 83605; 83690; 83735; 83880; 84484; 85025; 85610; 85730; 87040; 87637; 93005; 94640; 96365; 96367; 96372; 96375; 99285; 99291; J0696; J1644; J2919; J7050; Q9967